=== PATIENT | female | born 1960 | race Caucasian/White ===

== ENCOUNTER 2017-11-21 06:17 | Inpatient (IN) | payer OTHER ==
[2017-11-19 11:10] VITALS: BMI 42.6
[2017-11-21] MEDS ORDERED: ceFAZolin IV 1 gm in Dextrose 2 GM/100 ML BAG IVPB ONE (07:20)
[2017-11-21] MEDS ORDERED: Sodium Chloride 0.9% 20 ML IV ONE (07:26)
[2017-11-21] MEDS: Bupivacaine-Epi 0.5%-1:200,000 PF Inj IJ ONE ×2 (08:44→11:11)
[2017-11-21] MEDS ORDERED: Propofol 10 mg/ml Inj (20 ML) ONE (10:27)
[2017-11-21] MEDS ORDERED: Midazolam 2 MG/2 ML VIAL ONE (10:27)
[2017-11-21] MEDS ORDERED: Rocuronium 10 mg/ml (5 ml) ONE ×2 (10:32→11:24)
[2017-11-21] MEDS ORDERED: Neostigmine Methylsulfate 3mg/3ml Syringe IV ONE (12:56)
[2017-11-21] MEDS ORDERED: Morphine 4 MG/ML VIAL IVP PRN (13:21)
[2017-11-21] MEDS ORDERED: Oxycodone/Acetaminophen 5/325 mg Tab PO PRN (13:21)
[2017-11-21] MEDS ORDERED: Sodium Chloride 0.9% 1,000 ML IV SCH (13:30)
[2017-11-21] MEDS: HYDROmorphone 0.5 mg/0.5 ml ISec IVP PRN ×3 (13:35→14:08)
[2017-11-21] MEDS ORDERED: HYDROmorphone 0.5 mg/0.5 ml ISec ONE (13:45)
--- NOTE | 2017-11-21 13:50 | PCM.OP ---
Operative Report - Operative Report Date of Surgery/Procedure: 11/21/17 Time of Surgery/Procedure: 13:47 Surgeon: Sara Barnes MD [employer] Admin: Ham PAYNE Anesthesia/Sedation: Gen with ET tube Pre-Operative Diagnosis: Chronic pelvic pain. Prolapse uterus. Fibroid uterus. Urinary incontinence Post-Operative Diagnosis: Chronic pelvic pain. Prolapse uterus. Fibroid uterus. Urinary incontinence. Extensive pelvic adhesive disease Indication for Surgery: Worsening pelvic pain, prolapse symptoms and urinary incontinece Operative Findings: Most extensive pelvic and abdominal adhesions, omental and bowel adhesions to umbilical area. Extensive bowel adhesions to ovaries tubes and pelvic side wall. bulky uterus, fibroids and adenmyosis possible. apical uterine prolpase associated cystocele. normal bladder anatomy ureters efluxing urine freely Procedure/Operation Description: Robotic assisted hysterectomy BSO. Colpopexy uterosacroligament suspenssion. Extensive lysis of adhesions. Enterolysis. Exploration of ureters. Diagnostic cystoscopy Estimated Blood Loss: 20 Blood Replaced: none Sponge/Instrument Count: count correct times 2 Drains: none Complications: none Specimen: uterus, cervix tubes and ovaries
[2017-11-21] MEDS ORDERED: ceFAZolin 2 GM in Sodium Chloride 0.9% 100 ML IVPB SCH (15:00)
[2017-11-21] MEDS: ceFAZolin 2 GM in Sodium Chloride 0.9% 100 ML IVPB SCH (18:06)
[2017-11-21 20:16] VITALS: O2SAT 97
[2017-11-22] MEDS: ceFAZolin 2 GM in Sodium Chloride 0.9% 100 ML IVPB SCH ×2 (02:58→10:33)
[2017-11-22 08:14] LABS: HEMOGLOBIN 12.9 g/dL (11.0-16.0); MEAN CELL VOLUME 89.3 fL (81.0-99.0); MEAN CORPUSCULAR HEMOGLOBIN 29.4 pg (27.0-31.0); MEAN CORPUSCULAR HGB CONC 32.9 g/dL (33.0-37.0); MEAN PLATELET VOLUME 12.4 fL (7.2-11.7); RBC 4.38 Mil/uL (3.80-5.20); RED CELL DISTRIBUTION WIDTH 14.2 % (11.5-14.5); WHITE BLOOD COUNT 12.3 K/uL (4.8-10.8)
[2017-11-22 08:16] VITALS: BP 120/70; PULSE 75; RESP 18; TEMP 97.8
[2017-11-22 08:25] LABS: BLOOD UREA NITROGEN 14 mg/dL (7-17); CALCIUM 8.3 mg/dl (8.6-10.4); GFR AFRICAN-AMERICAN > 60; GFR NON-AFRICAN AMERICAN > 60
--- NOTE | 2017-11-22 09:44 | CP.PCM.PN ---
Subjective - Date & Time of Evaluation Date of Evaluation: 11/22/17 Time of Evaluation: 09:40 - Subjective Subjective: Patient states she has no pain. +void, good appetite, tolerated breakfast. OOB. Denies CP/SOB/dizziness. Objective - Vital Signs/Intake and Output Vital Signs (last 24 hours): Temp Pulse Resp BP Pulse Ox 97.8 F 75 18 120/70 97 11/22/17 08:30 11/22/17 08:30 11/22/17 08:30 11/22/17 08:30 11/22/17 08:30 Intake and Output: 11/22/17 11/22/17 06:59 18:59 Output Total 700 Balance -700 - Medications Medications: Current Medications Sodium Chloride (Sodium Chloride 0.9%) 1,000 mls @ 100 mls/hr IV .Q10H [facility] Last Admin: 11/21/17 14:50 Dose: 100 mls/hr Cefazolin Sodium 2 gm/ Sodium (Chloride) 100 mls @ 200 mls/hr IVPB Q8H [facility]ITH PRN Reason: Protocol Stop: 11/22/17 11:29 Last Admin: 11/22/17 02:58 Dose: 200 mls/hr Morphine Sulfate (Morphine) 4 mg IVP Q4H PRN PRN Reason: Pain, severe (8-10) Last Admin: 11/21/17 17:36 Dose: 4 mg Ondansetron HCl (Zofran Inj) 4 mg IVP Q6H PRN PRN Reason: Nausea/Vomiting Oxycodone/Acetaminophen (Percocet 5/325 Mg Tab) 1 tab PO Q4 PRN PRN Reason: Pain, moderate (4-7) Stop: 11/24/17 13:22 Last Admin: 11/22/17 05:51 Dose: 1 tab - Labs Labs: 11/22/17 08:03 11/22/17 08:03 - GI/Abdominal Exam Additional comments: soft, min tenderness no vaginal bleeding no erythema, incisions intact +BS Assessment and Plan (1) Chronic pelvic pain in female Assessment & Plan: POD#1 s/p robotic assisted hysterectomy BSO d/c home today activity as tolerated rx for tramadol [place] [employer] patient report reviewed, no CDS. Patient counseled on the risks of addiction, physical or psychological dependence, and overdose associated with opioid drugs and the danger of taking opioid drugs with alcohol and other central nervous system depressants, and cautioned patient on storage and disposal. f/u Dr. Patel 2 weeks call for appt resume home meds d/w Dr. Patel, agrees with above Status: Acute (2) Prolapse of uterus Status: Acute (3) Fibroid uterus Status: Acute (4) Urinary incontinence Status: Acute
== END 2017-11-22 12:48 | disposition home or self-care (01) | DRG 356 ==
LOC: C.SDS 06:17 → C.4M 13:21
PROVIDERS: ADMIT Obstetrics & Gynecology; ATTEND Obstetrics & Gynecology
PROC: 0UT24ZZ Resection of Bilateral Ovaries, Percutaneous Endoscopic Approach (ICD-10-PCS; 2017-11-21)
PROC: 0UT94ZZ Resection of Uterus, Percutaneous Endoscopic Approach (ICD-10-PCS; 2017-11-21)
PROC: 0DNU4ZZ Release Omentum, Percutaneous Endoscopic Approach (ICD-10-PCS; 2017-11-21)
PROC: 0USG4ZZ Reposition Vagina, Percutaneous Endoscopic Approach (ICD-10-PCS; 2017-11-21)
PROC: 0UT74ZZ Resection of Bilateral Fallopian Tubes, Percutaneous Endoscopic Approach (ICD-10-PCS; 2017-11-21)
PROC: 0TJB8ZZ Inspection of Bladder, Via Natural or Artificial Opening Endoscopic (ICD-10-PCS; 2017-11-21)
PROC: 8E0W4CZ Robotic Assisted Procedure of Trunk Region, Percutaneous Endoscopic Approach (ICD-10-PCS; 2017-11-21)
PROC: 0JQC3ZZ Repair Pelvic Region Subcutaneous Tissue and Fascia, Percutaneous Approach (ICD-10-PCS; principal; 2017-11-21 07:45)
DX: N81.4 Uterovaginal prolapse, unspecified (principal); D25.9 Leiomyoma of uterus, unspecified; K66.0 Peritoneal adhesions (postprocedural) (postinfection); N39.498 Other specified urinary incontinence; N95.0 Postmenopausal bleeding; G89.29 Other chronic pain